=== PATIENT | male | born 1965 | race African-American/Black ===

== ENCOUNTER → 2022-11-08 | Emergency (ER) | payer OTHER ==
[~2022-11-08] MED LIST: ACETAMINOPHEN 1000 MG/100 ML BAG IVPB ONE; ACETAMINOPHEN INJECTION 100 ML IVPB ONE; SODIUM CHLORIDE 1,000 ML IV STA
[2022-11-08 15:32] VITALS: BP 137/90; BMI 25.0
[2022-11-08 16:08] VITALS: PULSE 67; RESP 21
[2022-11-08 16:21] LABS: BASO % 0.2 % (0-2.0); EOS % 0.1 % (0-4.5); HEMATOCRIT 40.7 % (35.4-49); HEMOGLOBIN 13.9 GM/dL (11.7-16.9); LYMPH % 7.3 % (8-40); MCH 30.2 pg (25.7-33.7); MCHC 34.1 g/dl (32.0-35.9); MEAN CELL VOLUME 88.5 fl (80-96); MEAN PLT VOLUME 7.7 fl (7.5-11.1); MONO % 6.3 % (3.8-10.2); NEUT % 86.1 % (42.8-82.8); PLATELET COUNT 220 10^3/uL (134-434); RDW 14.2 % (11.9-15.9); WHITE BLOOD COUNT 11.9 K/mm3 (4.0-10.0)
[2022-11-08 16:36] LABS: INR 1.15 (0.83-1.09); PROTHROMBIN TIME (PATIENT) 13.3 SEC (9.7-13.0)
[2022-11-08 16:39] LABS: ACTIVATED PTT 26.3 SECONDS (25.2-36.5)
[2022-11-08 16:44] LABS: ALBUMIN 3.4 g/dl (3.4-5.0); CALCIUM 9.3 mg/dL (8.5-10.1)
[2022-11-08 16:45] LABS: BLOOD UREA NITROGEN 13.9 mg/dL (7-18)
[2022-11-08 16:47] LABS: CREATININE 0.8 mg/dL (0.55-1.3)
[2022-11-08 16:49] LABS: BILIRUBIN,TOTAL 0.9 mg/dL (0.2-1); TOT PROT 6.7 g/dl (6.4-8.2)
[2022-11-08 17:46] VITALS: TEMP 99.1
== END | disposition left against medical advice (07) ==
LOC: JER 15:12
PROC: 3E033NZ Introduction of Analgesics, Hypnotics, Sedatives into Peripheral Vein, Percutaneous Approach (ICD-10-PCS; principal; 2022-11-08)
PROC: 3E0337Z Introduction of Electrolytic and Water Balance Substance into Peripheral Vein, Percutaneous Approach (ICD-10-PCS; 2022-11-08)
DX: R10.13 Epigastric pain (principal); R07.2 Precordial pain; Z20.822 Contact with and (suspected) exposure to COVID-19
CPT/HCPCS: 0241U-QW; 36415; 71045-TC-FY; 80053; 83690; 84484; 85025; 85610; 85730; 93005; 93010; 99285-25